=== PATIENT | male | born 1965 | race Caucasian/White ===

== ENCOUNTER 2016-07-08 13:22 | Emergency (ER) | payer SELFPAY ==
[2016-07-08 13:52] VITALS: BP 116/60
--- NOTE | 2016-07-08 14:11 | ED Physician Documentation ---
General Adult - HISTORIAN Historian: patient, spouse - HPI Stated Complaint: cough Chief Complaint: Cough/ Upper Respiratory Additional Information: cough occ prod yellow lt facial pain chills sweats Onset: days ago (4) Timing: worse Severity: moderate - ROS CONST: no problems EYES/ENT: nasal drainage, nasal congestion. denies: sore throat CVS/RESP: shortness of breath (occasional), cough GI/: none MS/SKIN/LYMPH: none NEURO/PSYCH: denies: headache, fainting, dizziness - PAST HX Past History: hypertension Surgeries/Procedures: cardiac stent, other (4 stents nasal reconstruction) Allergies/Adverse Reactions: Allergies Allergy/AdvReac Type Severity Reaction Status Date / Time benzonatate Allergy Unknown No Reaction Verified 07/08/16 13:44 [From Jaki Lyon] Home Medications: Ambulatory Orders Medication Instructions Recorded Aspirin [Tania] 81 mg PO DAILY 07/08/16 Atorvastatin Calcium [Atorvastatin 80 mg PO DAILY 07/08/16 Calcium] Clopidogrel Bisulfate [Plavix] 75 mg PO QD 07/08/16 Losartan Potassium [Cozaar] 50 mg PO DAILY 07/08/16 Metoprolol Succinate [Toprol XL] 25 mg PO DAILY 07/08/16 - SOCIAL HX Smoking History: greater than 1 pack/day Alcohol Use: none Drug Use: none - FAMILY HX Family History: No - VITAL SIGNS Vital Signs: Vital Signs Temp Pulse Resp BP Pulse Ox 97.8 F 68 18 116/60 97 07/08/16 13:46 07/08/16 13:46 07/08/16 13:46 07/08/16 13:46 07/08/16 13:46 - REVIEWED ASSESSMENTS Nursing Assessment Reviewed: Yes Vitals Reviewed: Yes General Adult Physical Exam - PHYSICAL EXAM GENERAL APPEARANCE: mild distress EENT: eye inspection normal, ENT inspection normal (nasal congestion), other ( lt maxilary sinus percussion positive-assoc facial discomfort) NECK: normal inspection RESPIRATORY: breath sounds normal CVS: reg rate & rhythm, heart sounds normal ABDOMEN: soft, non-tender BACK: normal inspection SKIN: warm/dry, normal color. No: cyanosis, diaphoresis, jaundice EXTREMITIES: non-tender, normal range of motion NEURO: oriented X3, CN's nml as tested, motor nml, sensation nml Discharge Clincal Impression: Chronic sinusitis with recurrent bronchitis, nicotine abuse-prev ihd Home Medications: Ambulatory Orders Aspirin [Tania] 81 mg PO DAILY 07/08/16 Atorvastatin Calcium [Atorvastatin Calcium] 80 mg PO DAILY 07/08/16 Clopidogrel Bisulfate [Plavix] 75 mg PO QD 07/08/16 Losartan Potassium [Cozaar] 50 mg PO DAILY 07/08/16 Metoprolol Succinate [Toprol XL] 25 mg PO DAILY 07/08/16 Comments: rec dc cigs Condition: Good Disposition: 01 HOME, SELF-CARE Decision to Admit: NO Decision Time: 14:16
== END 2016-07-08 14:23 | disposition home or self-care (01) ==
LOC: ED 13:22
DX: J01.00 Acute maxillary sinusitis, unspecified (principal); F17.210 Nicotine dependence, cigarettes, uncomplicated; J40 Bronchitis, not specified as acute or chronic
CPT/HCPCS: 99283

== ENCOUNTER 2017-02-27 21:56 | Emergency (ER) | payer SELFPAY ==
[2017-02-27] MEDS ORDERED: ORPHENADRINE CITRATE 60 MG/2ML IM ONE (22:28)
[2017-02-27] MEDS ORDERED: KETOROLAC TROMETHAMINE 60 MG/2 ML VIAL IM ONE (22:28)
--- NOTE | 2017-02-27 22:41 | ED Physician Documentation ---
General Adult - HISTORIAN Historian: patient, spouse - [facility] Stated Complaint: Low back pain Chief Complaint: General Adult Additional Information: Low back pain began this am. L>R. No radiation. Denies loss of bowel/bladder control, numbness, tingling, paralysis, weakness. No meds taken. 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 Decreased urination today, but has drunk much. Movement of left leg increases pain. Lying recumbent eases pain. - ROS CONST: no problems - PAST HX Past History: AMI Surgeries/Procedures: cardiac stent Allergies/Adverse Reactions: Allergies Allergy/AdvReac Type Severity Reaction Status Date / Time benzonatate Allergy Mild Hives Verified 02/27/17 22:12 [From Jaki Lyon] Home Medications: Ambulatory Orders Medication Instructions Recorded Aspirin [Tania] 81 mg PO DAILY 07/08/16 Atorvastatin Calcium [Atorvastatin 80 mg PO DAILY 07/08/16 Calcium] Clopidogrel Bisulfate [Plavix] 75 mg PO QD 07/08/16 Losartan Potassium [Cozaar] 50 mg PO DAILY 07/08/16 Metoprolol Succinate [Toprol XL] 25 mg PO DAILY 07/08/16 Cyclobenzaprine HCl [Flexeril] 10 mg PO HS #7 tablet 02/27/17 Tramadol HCl [Ultram] 50 mg PO Q4H PRN #18 tablet 02/27/17 - SOCIAL HX Smoking History: cigarettes - VITAL SIGNS Vital Signs: Vital Signs Temp Pulse Resp BP Pulse Ox 98 H 18 94/64 96 02/27/17 21:58 02/27/17 21:58 02/27/17 21:58 02/27/17 21:58 Progress - Progress Progress: Lumbar spine 3 views Date of Exam: February 27, 2017. History: NEW ONSET OF LOW BACK PAIN WITH NO KNOWN INJURY (Hx) / NEW LOW BACK PAIN (DICOM Hx) / NEW LOW BACK PAIN (Pt comments) Findings: The lumbar spine alignment is normal. The lumbar vertebral bodies are of normal height and the intervertebral disc spaces are of average width. There is no evidence of compression deformity or subluxation. Lumbosacral alignment is maintained. Impression: No evidence of lumbar spine fracture or subluxation. Electronically signed on Feb 27, 2017 10:53:03 PM CDT by: Jhonny Maldonado ED Results Lab/Radiology - Orders Orders: ED Orders Category Date Time Status LUMBAR SPINE XR 2 OR 3 VIEWS [L SPINE 2 OR 3 VIEWS] [ Exams 02/27/17 Ordered RAD] Stat UA [URINALYSIS] Routine Lab 02/27/17 Ordered Ketorolac Tromethamine [Toradol] Med 02/27/17 22:28 Discontinued 60 mg IM NOW ONE Orphenadrine Citrate [Norflex] Med 02/27/17 22:28 Discontinued 60 mg IM NOW ONE General Adult Physical Exam - PHYSICAL EXAM GENERAL APPEARANCE: mild distress EENT: eye inspection normal, other (slightly muffled voice) NECK: normal inspection, supple RESPIRATORY: no resp distress BACK: normal inspection, no CVA tenderness, other (no pain with palpation, no detectable muscle spasm) SKIN: warm/dry, normal color EXTREMITIES: no evidence of injury, other (SLR positive on left at 10 degrees, pos on right at 50 degrees) Discharge Referrals: Primary Doctor,No [Primary Care Provider] - 2 Days
[2017-02-27 23:31] VITALS: BP 105/71
--- NOTE | 2017-02-28 01:11 | Diagnostic Imaging Report ---
KEILA CAPONE - MELISSA [facility] [id number] [facility] [address] [place] [address]. [id number] Report Submission Date: Feb 27, 2017 10:53:03 PM CDT Patient Study Name: KAY MCKEON Date: Feb 27, 2017 10:32:29 PM CDT Modality Type: CR Gender: M Description: SPINE : 61 Institution: [facility] Physician: KEILA CAPONE - MELISSA Lumbar spine 3 views Date of Exam: February 27, 2017. History: NEW ONSET OF LOW BACK PAIN WITH NO KNOWN INJURY (Hx) / NEW LOW BACK PAIN (DICOM Hx) / NEW LOW BACK PAIN (Pt comments) Findings: The lumbar spine alignment is normal. The lumbar vertebral bodies are of normal height and the intervertebral disc spaces are of average width. There is no evidence of compression deformity or subluxation. Lumbosacral alignment is maintained. Impression: No evidence of lumbar spine fracture or subluxation. Electronically signed on Feb 27, 2017 10:53:03 PM CDT by: Jhonny BANKS
[2017-02-28 05:26] LABS: APPEARANCE,URINE CLEAR (CLEAR); COLOR,URINE YELLOW (YELLOW); OCCULT BLOOD,URINE 2+ (NEGATIVE)
== END 2017-02-27 23:30 | disposition home or self-care (01) ==
LOC: ED 21:56
DX: M54.5 Low back pain (principal)
CPT/HCPCS: 72100; J1885; J2360; 81002; 96372; 99283